=== PATIENT | male | born 1945 | race Caucasian/White ===

== ENCOUNTER 2021-01-23 13:16 | Emergency (ER) | payer OTHER ==
[~2021-01-23] VITALS: Ht 193 cm; Wt 86.4 kg
[2021-01-23 13:31] VITALS: BP 148/87
[2021-01-23] MEDS ORDERED: predniSONE 20 mg tablet PO ONE (15:20)
[2021-01-23] MEDS ORDERED: PRED20TA PO (15:23)
== END 2021-01-23 16:13 | disposition home or self-care (01) ==
LOC: ER 13:17
DX: J44.1 Chronic obstructive pulmonary disease with (acute) exacerbation (principal); Z20.822 Contact with and (suspected) exposure to COVID-19; F17.200 Nicotine dependence, unspecified, uncomplicated; Z79.899 Other long term (current) drug therapy
CPT/HCPCS: 71045; 87635; 99284; C9803; J7512